=== PATIENT | female | born 1995 | race Caucasian/White ===

== ENCOUNTER → 2024-10-24 | Outpatient (CLI) | payer OTHER ==
[~2024-10-24] MED LIST: LEVOTHYROXIN0.025 MG PO; PRENATAL VITAM1 EAC1 PO; ZOFRAN ODT4 MG PO
[2024-10-24 23:14] LABS: T3 TOTAL 82 ng/dL (35-193)
[2024-10-25 00:30] LABS: T3 FREE 2.7 pg/mL (1.7-3.7)
[2024-10-30 12:07] LABS: THYROGLOBULIN ANTIBODY SCREEN AMS
== END ==
LOC: LAB 10:13
PROVIDERS: Nurse Practitioner
DX: Z13.220 Encounter for screening for lipoid disorders (principal); E03.9 Hypothyroidism, unspecified